=== PATIENT | female | born 1950 | race Caucasian/White ===

== ENCOUNTER 2019-11-29 14:33 | Emergency (ER) | payer OTHER ==
[~2019-11-29] VITALS: Ht 157.5 cm; Wt 83.5 kg
[2019-11-29 14:41] VITALS: Ht 157.5 cm; Wt 83.5 kg
[2019-11-29 16:16] LABS: BASOPHIL % 0.6 % (0-2); PLATELET COUNT 270 x10^3mcL (130-400)
[2019-11-29 16:24] LABS: C REACTIVE PROTEIN 0.3 mg/dL (<=0.9); CARBON DIOXIDE 29.8 mmol/L (21-32); CHLORIDE SERUM 103 mmol/L (98-107); CREATININE SERUM 0.8 mg/dL (0.6-1.0); GFR1 > 60 mL/min; GLUCOSE SERUM 165 mg/dL (74-106); SODIUM SERUM 139 mmol/L (136-145)
[2019-11-29 17:47] VITALS: BP 151/76
== END 2019-11-29 17:47 | disposition home or self-care (01) ==
LOC: ED 14:33
PROVIDERS: Emergency Medicine
DX: I87.8 Other specified disorders of veins (principal); I10 Essential (primary) hypertension; E11.9 Type 2 diabetes mellitus without complications
CPT/HCPCS: Q0092

== ENCOUNTER 2019-12-07 14:58 | Emergency (ER) | payer OTHER ==
[~2019-12-07] VITALS: Ht 162.6 cm; Wt 83.0 kg
[2019-12-07 15:12] VITALS: BP 142/60; Ht 162.6 cm; Wt 83.0 kg
== END 2019-12-07 18:33 | disposition home or self-care (01) ==
LOC: ED 14:58
DX: R21 Rash and other nonspecific skin eruption (principal); I10 Essential (primary) hypertension; E11.9 Type 2 diabetes mellitus without complications
CPT/HCPCS: J7512